=== PATIENT | female | born 1940 | race Caucasian/White ===

== ENCOUNTER 2020-05-28 18:12 | Inpatient (IN) | payer MEDICARE, BC ==
[2020-05-28] MEDS ORDERED: fentaNYL 50 MCG/ML SDV IVPUSH ONE (18:41)
--- NOTE | 2020-05-28 20:08 | EDM.PDOC ---
ED HPI GENERAL MEDICAL PROBLEM - General Chief Complaint: General Stated Complaint: Fell Time Seen by Provider: 05/28/20 18:21 Source of Information: Reports: Patient History Limitations: Reports: No Limitations - History of Present Illness INITIAL COMMENTS - FREE TEXT/NARRATIVE: Win is a pleasant 80 yo female who presented to the ED via private vehicle [place] by [place]. She states she had her walker with her and went to [employer] in her voucher when she tripped. She admits she his her nose but mostly fell onto her left shoulder. She states staff immediately helped her up. Admits she has a lot of left shoulder pain. Denies any loss of consciousness. No altered mental status. Elected to ride home and come to the local facility here to have her arm checked out. Patient's medication list reviewed and includes amlodipine 10mg daily, Lisinopril 40mg daily and gabapentin 100mg twice a day. 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 Had it "squeezed back together" - Past Surgical History HEENT Surgical History: Reports: Cataract Surgery Social & Family History - Tobacco Use Tobacco Use Status *Q: Former Tobacco User Used Tobacco, but Quit: Yes Month/Year Tobacco Last Used: 2010 - Caffeine Use Caffeine Use: Reports: Soda - Recreational Drug Use Recreational Drug Use: No ED ROS GENERAL - Review of Systems Review Of Systems: See Below Constitutional: Reports: No Symptoms HEENT: Reports: No Symptoms Respiratory: Reports: No Symptoms Cardiovascular: Reports: No Symptoms Endocrine: Reports: No Symptoms GI/Abdominal: Reports: No Symptoms Musculoskeletal: Reports: Shoulder Pain (Left), Arm Pain. Denies: Neck Pain, Hand Pain Skin: Reports: No Symptoms Neurological: Reports: No Symptoms Psychiatric: Reports: No Symptoms ED EXAM, GENERAL - Physical Exam Exam: See Below Exam Limited By: No Limitations General Appearance: Alert, WD/WN, No Apparent Distress Eye Exam: Bilateral Eye: EOMI, PERRL Ears: Normal External Exam, Hearing Loss Nose: Normal Inspection, Normal Mucosa, No Blood, Other (abrasion to bridge of nose) Throat/Mouth: Normal Inspection, Normal Lips, Normal Gums, Normal Voice, No Airway Compromise Head: Atraumatic, Normocephalic Neck: Normal Inspection, Supple, Non-Tender. No: Tender Lateral, Tender Midline Respiratory/Chest: No Respiratory Distress, Lungs Clear, Normal Breath Sounds, No Accessory Muscle Use Cardiovascular: Normal Peripheral Pulses, Regular Rate, Rhythm, No Murmur GI/Abdominal: Normal Bowel Sounds, Soft, Non-Tender, No Distention Back Exam: Normal Inspection. No: Vertebral Tenderness Extremities: Arm Pain, Limited Range of Motion (left shoulder, ROM deferred d/t humeral head fracture) Neurological: Alert, Oriented, CN II-XII Intact, Normal Cognition, No Motor/Sensory Deficits Psychiatric: Normal Affect, Normal Mood Skin Exam: Warm, Dry, Intact, Normal Color, No Rash Course - Vital Signs Last Recorded V/S: Last Vital Signs Temp 97.0 F 05/28/20 18:13 Pulse 101 H 05/28/20 18:13 Resp 20 05/28/20 18:13 BP 107/70 05/28/20 18:13 Pulse Ox 94 L 05/28/20 18:13 - Orders/Labs/Meds Orders: Active Orders 24 hr Category Date Time Status Shoulder Comp Lt [CR] Stat Exams 05/28/20 18:23 Taken Labs: Laboratory Tests 05/28/20 05/28/20 Range/Units 18:41 18:41 WBC 10.2 H (5.0-10.0) 10^3/uL RBC 4.16 (4.00-5.50) 10^6/uL Hgb 13.2 (12.0-16.0) g/dL Hct 39.6 (37.0-47.0) % MCV 95.2 H (82.0-94.0) fL MCH 31.7 (27.0-32.0) pg MCHC 33.3 (33.0-38.0) g/dL RDW Coeff of Kathrin 12.9 (11.0-15.0) % Plt Count 193 (150-400) 10^3/uL Neut % (Auto) 90.4 H (35-85) % Lymph % (Auto) 5.3 L (10-55) % [place]ison % (Auto) 4.1 (0-16) % Eos % (Auto) 0.1 (0-5) % Baso % (Auto) 0.1 (0-3) % Neut # (Auto) 9.24 H (1.80-7.00) 10^3/uL Lymph # (Auto) 0.54 L (1.00-4.80) 10^3/uL [place] # (Auto) 0.42 (0.00-0.80) 10^3/uL Eos # (Auto) 0.01 (0.00-0.45) 10^3/uL Baso # (Auto) 0.01 10^3/uL Sodium 140 (136-145) mEq/L Potassium 4.1 (3.5-5.0) mEq/L Chloride 104 (98-106) mEq/L Carbon Dioxide 29 (21-32) mmol/L BUN 23 H (7-18) mg/dL Creatinine 1.3 H D (0.6-1.0) mg/dL Est Cr Clr Drug Dosing 27.30 mL/min Estimated GFR (MDRD) 39 L (>=60) mL/min Glucose 187 H D (75-99) mg/dL Calcium 8.9 (8.4-10.1) mg/dL Total Bilirubin 0.4 (0.0-1.0) mg/dL AST 15 (15-37) U/L ALT 25 (12-78) U/L Alkaline Phosphatase 81 (46-116) U/L Total Protein 6.8 (6.4-8.2) g/dL Albumin 3.6 (3.4-5.0) g/dL Meds: Medications Discontinued Medications Generic Name Dose Route Start Last Admin Trade Name Freq PRN Reason Stop Dose Admin Fentanyl 25 mcg 05/28/20 18:41 05/28/20 19:20 Fentanyl 50 Mcg/Ml Sdv IVPUSH 05/28/20 18:42 25 mcg ONETIME ONE Administration Departure - Departure Time of Disposition: 20:00 Disposition: Admitted As Inpatient 66 Clinical Impression: Fracture of humeral head, right, closed Qualifiers: Encounter type: initial encounter Qualified Code(s): S42.291A - Other displaced fracture of upper end of right humerus, initial encounter for closed fracture - Discharge Information Sepsis Event Note (ED) - Evaluation Sepsis Screening Result: No Definite Risk - Focused Exam Vital Signs: Vital Signs Temp Pulse Resp BP Pulse Ox 05/28/20 18:13 97.0 F 101 H 20 107/70 94 L - Problem List & Annotations (1) Fracture of humeral head, right, closed SNOMED Code(s): 067898955 Code(s): S42.291A - OTH DISP FX OF UPPER END OF RIGHT HUMERUS, INIT FOR CLOS FX Status: Acute Current Visit: Yes Qualifiers: Encounter type: initial encounter Qualified Code(s): S42.291A - Other displaced fracture of upper end of right humerus, initial encounter for closed fracture - Problem List Review Problem List Initiated/Reviewed/Updated: Yes - My Orders Last 24 Hours: My Active Orders 05/28/20 18:23 Shoulder Comp Lt [CR] Stat - Assessment/Plan Admission H&P: Please use this note as an admission H&P Last 24 Hours: My Active Orders 05/28/20 18:23 Shoulder Comp Lt [CR] Stat Plan: Patient underwent images of the left shoulder which did confirm comminuted, displaced left humeral head fracture. Patient has full ROM of distal digits and sensation. Radial pulse intact. Consulted with [facility] and spoke with Dr. Daniels, orthopedic surgeon. Dr. Daniels did review the images and felt Win will need to undergo a reverse total shoulder replacement. He didn't feel anything needed to be done emergently and advised he will get her set up to be seen in his clinic on Saturday. Patient was placed in shoulder immobilizer with no neurovascular deficits noted. Discussed Win's condition with Augusto () and Sony (son). Patient has known difficulty with ambulation. Patient will need assistance with ADL's. Patient to be admitted to acute care for pain control as well. Family in agreement. Will plan for discharge for appointment with Dr. Daniels on Saturday or Saturday.
[2020-05-28] MEDS ORDERED: fentaNYL 50 MCG/ML SDV IVPUSH PRN (20:23)
[2020-05-28] MEDS ORDERED: Acetaminophen 325 MG Tab PO PRN (20:23)
[2020-05-28] MEDS ORDERED: Sodium Chloride 0.9% 10 ML Syringe FLUSH PRN (20:23)
[2020-05-28] MEDS ORDERED: Docusate Sodium 100 MG Cap PO PRN (20:23)
[2020-05-28] MEDS ORDERED: Ondansetron 4 MG/2 ML SDV IV PRN (20:23)
[2020-05-28] MEDS: HYDROmorphone 1 MG/ML Syringe IVPUSH PRN (21:10)
[2020-05-28] MEDS: Enoxaparin 30 MG/0.3 ML Syringe SUBCUT SCH (21:11)
[2020-05-28] MEDS: Acetaminophen/HYDROcodone 325-5 MG Tab PO PRN (21:11)
[2020-05-29] MEDS: Acetaminophen/HYDROcodone 325-5 MG Tab PO PRN ×2 (04:45→13:42)
[2020-05-29] MEDS: Gabapentin 100 MG Cap PO SCH (07:55)
[2020-05-29] MEDS: amLODIPine 10 MG Tab PO SCH (07:56)
[2020-05-29] MEDS: Lisinopril 20 MG Tab PO SCH (07:57)
[2020-05-29] MEDS: HYDROmorphone 1 MG/ML Syringe IVPUSH PRN (07:59)
--- NOTE | 2020-05-29 10:41 | PCM.PN ---
- General Info Date of Service: 05/29/20 Admission Dx/Problem (Free Text): Humerus Fracture Subjective Update: Patient resting comfortably. Immobilizer intact. Admits that still has pain with any movement of her arm. Is receiving Dilaudid which does help control the pain. Appetite is good. Has not been ambulating much except to bathroom. Patient does question ability to care for self even after surgery. Vital signs are stable. Functional Status: Reports: Pain Controlled, Tolerating Diet. Denies: Ambulating - Review of Systems General: Reports: Weakness HEENT: Reports: No Symptoms Pulmonary: Denies: Shortness of Breath, Cough Cardiovascular: Denies: Chest Pain, Edema, Lightheadedness Gastrointestinal: Denies: Abdominal Pain, Nausea, Vomiting Genitourinary: Reports: No Symptoms Musculoskeletal: Reports: Arm Pain Skin: Reports: Bruising Neurological: Reports: No Symptoms - Patient Data Vitals - Most Recent: Last Vital Signs Temp 99.1 F 05/29/20 08:00 Pulse 81 05/29/20 08:00 Resp 20 05/29/20 08:00 BP 129/66 05/29/20 08:00 Pulse Ox 94 L 05/29/20 08:00 Weight - Most Recent: 189 lb 3.2 oz Lab Results Last 24 Hours: Laboratory Results - last 24 hr 05/28/20 05/28/20 Range/Units 18:41 18:41 WBC 10.2 H (5.0-10.0) 10^3/uL RBC 4.16 (4.00-5.50) 10^6/uL Hgb 13.2 (12.0-16.0) g/dL Hct 39.6 (37.0-47.0) % MCV 95.2 H (82.0-94.0) fL MCH 31.7 (27.0-32.0) pg MCHC 33.3 (33.0-38.0) g/dL RDW Coeff of Kathrin 12.9 (11.0-15.0) % Plt Count 193 (150-400) 10^3/uL Neut % (Auto) 90.4 H (35-85) % Lymph % (Auto) 5.3 L (10-55) % Isabella % (Auto) 4.1 (0-16) % Eos % (Auto) 0.1 (0-5) % Baso % (Auto) 0.1 (0-3) % Neut # (Auto) 9.24 H (1.80-7.00) 10^3/uL Lymph # (Auto) 0.54 L (1.00-4.80) 10^3/uL Isabella # (Auto) 0.42 (0.00-0.80) 10^3/uL Eos # (Auto) 0.01 (0.00-0.45) 10^3/uL Baso # (Auto) 0.01 10^3/uL Sodium 140 (136-145) mEq/L Potassium 4.1 (3.5-5.0) mEq/L Chloride 104 (98-106) mEq/L Carbon Dioxide 29 (21-32) mmol/L BUN 23 H (7-18) mg/dL Creatinine 1.3 H D (0.6-1.0) mg/dL Est Cr Clr Drug Dosing 27.30 mL/min Estimated GFR (MDRD) 39 L (>=60) mL/min Glucose 187 H D (75-99) mg/dL Calcium 8.9 (8.4-10.1) mg/dL Total Bilirubin 0.4 (0.0-1.0) mg/dL AST 15 (15-37) U/L ALT 25 (12-78) U/L Alkaline Phosphatase 81 (46-116) U/L Total Protein 6.8 (6.4-8.2) g/dL Albumin 3.6 (3.4-5.0) g/dL Med Orders - Current: Current Medications Acetaminophen (Acetaminophen 325 Mg Tab) 650 mg PO Q4H PRN PRN Reason: Pain (Mild 1-3)/fever Hydrocodone Bitart/Acetaminophen (Acetaminophen/Hydrocodone 325-5 Mg Tab) 1 tab PO Q4H PRN PRN Reason: Pain (moderate 4-6) Last Admin: 05/29/20 04:45 Dose: 1 tab Documented by: Amlodipine Besylate (Amlodipine 10 Mg Tab) 10 mg PO DAILY [facility] Last Admin: 05/29/20 07:56 Dose: 10 mg Documented by: Docusate Sodium (Docusate Sodium 100 Mg Cap) 100 mg PO BID PRN PRN Reason: Constipation Enoxaparin Sodium (Enoxaparin 30 Mg/0.3 Ml Syringe) 30 mg SUBCUT Q24H [facility] Last Admin: 05/28/20 21:11 Dose: 30 mg Documented by: Gabapentin (Gabapentin 100 Mg Cap) 100 mg PO DAILY [facility] Last Admin: 05/29/20 07:55 Dose: 100 mg Documented by: Hydromorphone HCl (Hydromorphone 1 Mg/Ml Syringe) 0.5 - 1 mg IVPUSH Q4H PRN PRN Reason: Pain Last Admin: 05/29/20 07:59 Dose: 1 mg Documented by: Hydromorphone HCl (Hydromorphone 1 Mg/Ml Syringe) 1 mg IVPUSH Q12H [facility] Lisinopril (Lisinopril 20 Mg Tab) 40 mg PO DAILY [facility] Last Admin: 05/29/20 07:57 Dose: 40 mg Documented by: Non-Formulary Medication (Naproxen Sodium [Aleve]) 440 mg PO DAILY PRN PRN Reason: Pain Ondansetron HCl (Ondansetron 4 Mg/2 Ml Sdv) 4 mg IV Q4H PRN PRN Reason: Nausea/Vomiting Sodium Chloride (Sodium Chloride 0.9% 10 Ml Syringe) 10 ml FLUSH ASDIRECTED PRN PRN Reason: Keep Vein Open Discontinued Medications Fentanyl (Fentanyl 50 Mcg/Ml Sdv) 25 mcg IVPUSH ONETIME ONE Stop: 05/28/20 18:42 Last Admin: 05/28/20 19:20 Dose: 25 mcg Documented by: Fentanyl (Fentanyl 50 Mcg/Ml Sdv) 25 mcg IVPUSH Q4H PRN PRN Reason: Pain - Exam General: Alert, Oriented HEENT: Mucous Membr. Moist/[place] Neck: Supple Lungs: Clear to Auscultation, Normal Respiratory Effort Cardiovascular: Regular Rate, Regular Rhythm GI/Abdominal Exam: Normal Bowel Sounds, Soft, Non-Tender Extremities: Pedal Edema (trace), Limited Range of Motion (Has swelling and early bruising of left upper arm. Immobilizer intact. Tender to palpation.) Skin: Ecchymosis (has mild ) Neurological: No New Focal Deficit - Patient Data Lab Results Last 24 hrs: Laboratory Results - last 24 hr 05/28/20 05/28/20 Range/Units 18:41 18:41 WBC 10.2 H (5.0-10.0) 10^3/uL RBC 4.16 (4.00-5.50) 10^6/uL Hgb 13.2 (12.0-16.0) g/dL Hct 39.6 (37.0-47.0) % MCV 95.2 H (82.0-94.0) fL MCH 31.7 (27.0-32.0) pg MCHC 33.3 (33.0-38.0) g/dL RDW Coeff of Kathrin 12.9 (11.0-15.0) % Plt Count 193 (150-400) 10^3/uL Neut % (Auto) 90.4 H (35-85) % Lymph % (Auto) 5.3 L (10-55) % Isabella % (Auto) 4.1 (0-16) % Eos % (Auto) 0.1 (0-5) % Baso % (Auto) 0.1 (0-3) % Neut # (Auto) 9.24 H (1.80-7.00) 10^3/uL Lymph # (Auto) 0.54 L (1.00-4.80) 10^3/uL Isabella # (Auto) 0.42 (0.00-0.80) 10^3/uL Eos # (Auto) 0.01 (0.00-0.45) 10^3/uL Baso # (Auto) 0.01 10^3/uL Sodium 140 (136-145) mEq/L Potassium 4.1 (3.5-5.0) mEq/L Chloride 104 (98-106) mEq/L Carbon Dioxide 29 (21-32) mmol/L BUN 23 H (7-18) mg/dL Creatinine 1.3 H D (0.6-1.0) mg/dL Est Cr Clr Drug Dosing 27.30 mL/min Estimated GFR (MDRD) 39 L (>=60) mL/min Glucose 187 H D (75-99) mg/dL Calcium 8.9 (8.4-10.1) mg/dL Total Bilirubin 0.4 (0.0-1.0) mg/dL AST 15 (15-37) U/L ALT 25 (12-78) U/L Alkaline Phosphatase 81 (46-116) U/L Total Protein 6.8 (6.4-8.2) g/dL Albumin 3.6 (3.4-5.0) g/dL Result Diagrams: 05/28/20 18:41 05/28/20 18:41 Sepsis Event Note - Evaluation Sepsis Screening Result: No Definite Risk - Focused Exam Vital Signs: Vital Signs Temp Pulse Resp BP BP Pulse Ox 05/29/20 08:00 99.1 F 81 20 129/66 94 L 05/29/20 07:57 129/66 05/29/20 07:56 126/66 05/29/20 04:00 97.4 F 85 18 128/79 95 05/29/20 00:00 97.4 F 82 18 108/62 94 L - Problem List & Annotations (1) Fracture of humeral head, right, closed SNOMED Code(s): 969077845 Code(s): S42.291A - OTH DISP FX OF UPPER END OF RIGHT HUMERUS, INIT FOR CLOS FX Status: Acute Current Visit: Yes Qualifiers: Encounter type: initial encounter Qualified Code(s): S42.291A - Other displaced fracture of upper end of right humerus, initial encounter for closed fracture - Problem List Review Problem List Initiated/Reviewed/Updated: Yes - My Orders Last 24 Hours: My Active Orders 05/29/20 20:00 HYDROmorphone [Dilaudid] 1 mg IVPUSH Q12H - Assessment Assessment:: Left Humerus Fracture - Plan Plan:: Will switch to scheduled Dilaudid for more consistent pain control. Social ser vice consult on Saturday for questionable swing bed after surgery. Continue immobilizer. Orthopedic will again be contacted on Saturday to arrange for surgical intervention of fracture.
[2020-05-29] MEDS: HYDROmorphone 1 MG/ML Syringe IVPUSH SCH (19:34)
[2020-05-29] MEDS: Enoxaparin 30 MG/0.3 ML Syringe SUBCUT SCH (20:05)
[2020-05-30] MEDS: HYDROmorphone 1 MG/ML Syringe IVPUSH SCH ×2 (07:42→19:36)
[2020-05-30] MEDS: amLODIPine 10 MG Tab PO SCH (07:42)
[2020-05-30] MEDS: Gabapentin 100 MG Cap PO SCH (07:42)
[2020-05-30] MEDS: Lisinopril 20 MG Tab PO SCH (07:42)
[2020-05-30 07:57] LABS: CHLORIDE,CL 103 mEq/L (98-106); SODIUM,NA 139 mEq/L (136-145)
[2020-05-30] MEDS: cefTRIAXone 1 GM Vial IVPUSH SCH (09:13)
[2020-05-30] MEDS: Acetaminophen/HYDROcodone 325-5 MG Tab PO PRN (09:31)
[2020-05-30] MEDS ORDERED: Naproxen 500 MG Tab PO PRN (16:34)
[2020-05-30] MEDS: Enoxaparin 30 MG/0.3 ML Syringe SUBCUT SCH (21:00)
[2020-05-31] MEDS: Acetaminophen/HYDROcodone 325-5 MG Tab PO PRN ×3 (04:19→16:25)
[2020-05-31] MEDS: Lisinopril 20 MG Tab PO SCH (08:00)
[2020-05-31] MEDS: HYDROmorphone 1 MG/ML Syringe IVPUSH SCH ×2 (08:00→19:55)
[2020-05-31] MEDS: Gabapentin 100 MG Cap PO SCH (08:01)
[2020-05-31] MEDS: amLODIPine 10 MG Tab PO SCH (08:01)
--- NOTE | 2020-05-31 09:25 | PCM.PN ---
- General Info Date of Service: 05/30/20 Admission Dx/Problem (Free Text): Humerus Fracture Subjective Update: Patient resting comfortably. Immobilizer intact. Admits that still has pain with any movement of her arm. Is receiving Dilaudid which does help control the pain. Appetite is good. Has not been ambulating much except to bathroom. Patient does question ability to care for self even after surgery. Vital signs are stable. 05/30/2020 Win is doing well this morning. States she continues to have an ache in her arm but feels the pain medication has been helping. Immobilizer is still in place. Questioning when she will have surgery. Appetite is okay, states she hasn't been getting up very much as it does cause increased pain and unsteady on her feet. Unable to use walker. Denies any UTI symptoms but urinalysis did come back positive. States she hasn't had a bowel movement. Functional Status: Denies: Pain Controlled - Review of Systems General: Reports: Weakness HEENT: Reports: No Symptoms Pulmonary: Reports: No Symptoms Cardiovascular: Reports: No Symptoms Gastrointestinal: Reports: Constipation, Decreased Appetite, Flatus, Nausea. Denies: Vomiting Genitourinary: Reports: No Symptoms Musculoskeletal: Reports: Shoulder Pain Skin: Reports: No Symptoms Neurological: Reports: No Symptoms Psychiatric: Reports: No Symptoms - Patient Data Vitals - Most Recent: Last Vital Signs Temp 98 F 05/31/20 04:00 Pulse 95 05/31/20 04:00 Resp 18 05/31/20 04:00 BP 128/72 05/31/20 08:01 Pulse Ox 94 L 05/31/20 04:00 Weight - Most Recent: 189 lb 3.2 oz Lab Results Last 24 Hours: Laboratory Results - last 24 hr 05/30/20 Range/Units 10:07 NT-Pro-B Natriuret Pep 66 (0-1000) pg/mL Med Orders - Current: Current Medications Acetaminophen (Acetaminophen 325 Mg Tab) 650 mg PO Q4H PRN PRN Reason: Pain (Mild 1-3)/fever Last Admin: 05/30/20 08:44 Dose: 650 mg Documented by: Hydrocodone Bitart/Acetaminophen (Acetaminophen/Hydrocodone 325-5 Mg Tab) 1 tab PO Q4H PRN PRN Reason: Pain (moderate 4-6) Last Admin: 05/31/20 04:19 Dose: 1 tab Documented by: Amlodipine Besylate (Amlodipine 10 Mg Tab) 10 mg PO DAILY [facility] Last Admin: 05/31/20 08:01 Dose: 10 mg Documented by: Ceftriaxone Sodium (Ceftriaxone 1 Gm Vial) 1 gm IVPUSH Q24H [facility] Last Admin: 05/30/20 09:13 Dose: 1 gm Documented by: Docusate Sodium (Docusate Sodium 100 Mg Cap) 100 mg PO BID PRN PRN Reason: Constipation Last Admin: 05/30/20 08:45 Dose: 100 mg Documented by: Enoxaparin Sodium (Enoxaparin 30 Mg/0.3 Ml Syringe) 30 mg SUBCUT Q24H [facility] Last Admin: 05/30/20 21:00 Dose: 30 mg Documented by: Gabapentin (Gabapentin 100 Mg Cap) 100 mg PO DAILY [facility] Last Admin: 05/31/20 08:01 Dose: 100 mg Documented by: Hydromorphone HCl (Hydromorphone 1 Mg/Ml Syringe) 0.5 - 1 mg IVPUSH Q4H PRN PRN Reason: Pain Last Admin: 05/29/20 07:59 Dose: 1 mg Documented by: Hydromorphone HCl (Hydromorphone 1 Mg/Ml Syringe) 1 mg IVPUSH Q12H [facility] Last Admin: 05/31/20 08:00 Dose: 1 mg Documented by: Lisinopril (Lisinopril 20 Mg Tab) 40 mg PO DAILY [facility] Last Admin: 05/31/20 08:00 Dose: 40 mg Documented by: Naproxen (Naproxen 500 Mg Tab) 500 mg PO DAILY PRN PRN Reason: Pain Ondansetron HCl (Ondansetron 4 Mg/2 Ml Sdv) 4 mg IV Q4H PRN PRN Reason: Nausea/Vomiting Sodium Chloride (Sodium Chloride 0.9% 10 Ml Syringe) 10 ml FLUSH ASDIRECTED PRN PRN Reason: Keep Vein Open Discontinued Medications Fentanyl (Fentanyl 50 Mcg/Ml Sdv) 25 mcg IVPUSH ONETIME ONE Stop: 05/28/20 18:42 Last Admin: 05/28/20 19:20 Dose: 25 mcg Documented by: Fentanyl (Fentanyl 50 Mcg/Ml Sdv) 25 mcg IVPUSH Q4H PRN PRN Reason: Pain - Exam General: Alert, Oriented, Cooperative, No Acute Distress Lungs: Clear to Auscultation, Normal Respiratory Effort Cardiovascular: Regular Rate, Regular Rhythm, No Murmurs GI/Abdominal Exam: Normal Bowel Sounds, Soft, Non-Tender, No Organomegaly, No Distention Extremities: Normal Inspection, Pedal Edema (trace bilateral) Peripheral Pulses: 2+: Radial (L), Dorsalis Pedis (L), Dorsalis Pedis (R) Skin: Warm, Dry, Intact Psy/Mental Status: Alert, Normal Affect, Normal Mood - Patient Data Lab Results Last 24 hrs: Laboratory Results - last 24 hr 05/30/20 Range/Units 10:07 NT-Pro-B Natriuret Pep 66 (0-1000) pg/mL Result Diagrams: 05/30/20 05:11 05/30/20 05:11 Sepsis Event Note - Evaluation Sepsis Screening Result: No Definite Risk - Focused Exam Vital Signs: Vital Signs Temp Pulse Resp BP BP Pulse Ox 05/31/20 08:01 128/72 05/31/20 08:00 128/72 05/31/20 04:00 98 F 95 18 122/58 L 94 L 05/31/20 00:00 98 F 82 18 142/67 H 94 L - Problem List & Annotations (1) Fracture of humeral head, right, closed SNOMED Code(s): 193264499 Code(s): S42.291A - OTH DISP FX OF UPPER END OF RIGHT HUMERUS, INIT FOR CLOS FX Status: Acute Current Visit: Yes Qualifiers: Encounter type: initial encounter Qualified Code(s): S42.291A - Other displaced fracture of upper end of right humerus, initial encounter for closed fracture (2) UTI (urinary tract infection) SNOMED Code(s): 52591451 Code(s): N39.0 - URINARY TRACT INFECTION, SITE NOT SPECIFIED Status: Acute Current Visit: Yes Qualifiers: Urinary tract infection type: acute cystitis Hematuria presence: without hematuria Qualified Code(s): N30.00 - Acute cystitis without hematuria - Problem List Review Problem List Initiated/Reviewed/Updated: Yes - My Orders Last 24 Hours: My Active Orders 05/30/20 09:00 cefTRIAXone [Rocephin] 1 gm IVPUSH Q24H 05/30/20 09:19 Consult to Physical Therapy [PT Evaluation and Treatment] [CONS] Routine 05/30/20 09:50 Resuscitation Status Routine 05/30/20 16:34 Naproxen [Naprosyn] 500 mg PO DAILY PRN - Assessment Assessment:: Left Humerus Fracture - Plan Plan:: Will switch to scheduled Dilaudid for more consistent pain control. Social service consult on Saturday for questionable swing bed after surgery. Continue immobilizer. Orthopedic will again be contacted on Saturday to arrange for surgical intervention of fracture. 05/30/2020 Patient has been started on IV Rocephine for UTI. Culture is pending. Will continue with current pain medication and discussed may use [place] every 4 hours as needed for pain. Will continue to get scheduled IV Dilaudid. Consulted with [facility] and Dr. Daniels's office. Surgery will likely be Saturday or . Will call tomorrow morning for follow up on surgery and transfer.
--- NOTE | 2020-05-31 09:45 | PCM.PN ---
- General Info Date of Service: 05/31/20 Admission Dx/Problem (Free Text): Humerus Fracture Subjective Update: Patient resting comfortably. Immobilizer intact. Admits that still has pain with any movement of her arm. Is receiving Dilaudid which does help control the pain. Appetite is good. Has not been ambulating much except to bathroom. Patient does question ability to care for self even after surgery. Vital signs are stable. 05/30/2020 Win is doing well this morning. States she continues to have an ache in her arm but feels the pain medication has been helping. Immobilizer is still in place. Questioning when she will have surgery. Appetite is okay, states she hasn't been getting up very much as it does cause increased pain and unsteady on her feet. Unable to use walker. Denies any UTI symptoms but urinalysis did come back positive. States she hasn't had a bowel movement. 05/31/2020 Win is in good spirits this morning. States the pain is tolerable and the pain medications are lasting about 4 hours. States after that it will get a strong ache in her arm. Physical therapy was in to see her this morning. Physical therapy is concerned as she is very hesitant to walk with only a cane, as she usually uses a walker. PT states she needs to be more confident. Concerned Win will just sit in the chair all day where she is comfortable. She denies any bowel movements but states she is passing gas. Appetite is okay. Functional Status: Reports: Pain Controlled, Tolerating Diet, Incentive Spirometry - Review of Systems General: Reports: Weakness HEENT: Reports: No Symptoms Pulmonary: Reports: No Symptoms Cardiovascular: Reports: No Symptoms Gastrointestinal: Reports: No Symptoms Genitourinary: Reports: No Symptoms Musculoskeletal: Reports: Shoulder Pain Skin: Reports: No Symptoms Neurological: Reports: No Symptoms - Patient Data Vitals - Most Recent: Last Vital Signs Temp 98.7 F 05/31/20 08:00 Pulse 92 05/31/20 08:00 Resp 18 05/31/20 08:00 BP 128/72 05/31/20 08:01 Pulse Ox 93 L 05/31/20 08:00 Weight - Most Recent: 189 lb 3.2 oz Lab Results Last 24 Hours: Laboratory Results - last 24 hr 05/30/20 Range/Units 10:07 NT-Pro-B Natriuret Pep 66 (0-1000) pg/mL [place] Results Last 24 Hours: Microbiology 05/30/20 07:43 Urine Culture - Preliminary Urine, Voided Gram Negative Rods Med Orders - Current: Current Medications Acetaminophen (Acetaminophen 325 Mg Tab) 650 mg PO Q4H PRN PRN Reason: Pain (Mild 1-3)/fever Last Admin: 05/30/20 08:44 Dose: 650 mg Documented by: Hydrocodone Bitart/Acetaminophen (Acetaminophen/Hydrocodone 325-5 Mg Tab) 1 tab PO Q4H PRN PRN Reason: Pain (moderate 4-6) Last Admin: 05/31/20 04:19 Dose: 1 tab Documented by: Amlodipine Besylate (Amlodipine 10 Mg Tab) 10 mg PO DAILY [facility] Last Admin: 05/31/20 08:01 Dose: 10 mg Documented by: Ceftriaxone Sodium (Ceftriaxone 1 Gm Vial) 1 gm IVPUSH Q24H [facility] Last Admin: 05/30/20 09:13 Dose: 1 gm Documented by: Docusate Sodium (Docusate Sodium 100 Mg Cap) 100 mg PO BID PRN PRN Reason: Constipation Last Admin: 05/30/20 08:45 Dose: 100 mg Documented by: Enoxaparin Sodium (Enoxaparin 30 Mg/0.3 Ml Syringe) 30 mg SUBCUT Q24H [facility] Last Admin: 05/30/20 21:00 Dose: 30 mg Documented by: Gabapentin (Gabapentin 100 Mg Cap) 100 mg PO DAILY [facility] Last Admin: 05/31/20 08:01 Dose: 100 mg Documented by: Hydromorphone HCl (Hydromorphone 1 Mg/Ml Syringe) 0.5 - 1 mg IVPUSH Q4H PRN PRN Reason: Pain Last Admin: 05/29/20 07:59 Dose: 1 mg Documented by: Hydromorphone HCl (Hydromorphone 1 Mg/Ml Syringe) 1 mg IVPUSH Q12H [facility] Last Admin: 05/31/20 08:00 Dose: 1 mg Documented by: Lisinopril (Lisinopril 20 Mg Tab) 40 mg PO DAILY [facility] Last Admin: 05/31/20 08:00 Dose: 40 mg Documented by: Naproxen (Naproxen 500 Mg Tab) 500 mg PO DAILY PRN PRN Reason: Pain Ondansetron HCl (Ondansetron 4 Mg/2 Ml Sdv) 4 mg IV Q4H PRN PRN Reason: Nausea/Vomiting Sodium Chloride (Sodium Chloride 0.9% 10 Ml Syringe) 10 ml FLUSH ASDIRECTED PRN PRN Reason: Keep Vein Open Discontinued Medications Fentanyl (Fentanyl 50 Mcg/Ml Sdv) 25 mcg IVPUSH ONETIME ONE Stop: 05/28/20 18:42 Last Admin: 05/28/20 19:20 Dose: 25 mcg Documented by: Fentanyl (Fentanyl 50 Mcg/Ml Sdv) 25 mcg IVPUSH Q4H PRN PRN Reason: Pain - Exam General: Alert, Oriented, Cooperative, No Acute Distress Lungs: Clear to Auscultation, Normal Respiratory Effort Cardiovascular: Regular Rate, Regular Rhythm, No Murmurs GI/Abdominal Exam: Normal Bowel Sounds, Soft, Non-Tender, No Distention Extremities: Normal Inspection, Normal Range of Motion, No Pedal Edema, Pedal Edema (trace) Peripheral Pulses: 2+: Radial (L), Dorsalis Pedis (L), Dorsalis Pedis (R) Skin: Warm, Dry, Intact Neurological: Sensation Intact Psy/Mental Status: Alert, Normal Affect, Normal Mood - Patient Data Lab Results Last 24 hrs: Laboratory Results - last 24 hr 05/30/20 Range/Units 10:07 NT-Pro-B Natriuret Pep 66 (0-1000) pg/mL Result Diagrams: 05/30/20 05:11 05/30/20 05:11 [place] Results Last 24 hrs: Microbiology 05/30/20 07:43 Urine Culture - Preliminary Urine, Voided Gram Negative Rods Sepsis Event Note - Evaluation Sepsis Screening Result: No Definite Risk - Focused Exam Vital Signs: Vital Signs Temp Pulse Resp BP BP Pulse Ox 05/31/20 08:01 128/72 05/31/20 08:00 98.7 F 92 18 128/72 128/72 93 L 05/31/20 04:00 98 F 95 18 122/58 L 94 L 05/31/20 00:00 98 F 82 18 142/67 H 94 L - Problem List & Annotations (1) Fracture of humeral head, right, closed SNOMED Code(s): 812661760 Code(s): S42.291A - OTH DISP FX OF UPPER END OF RIGHT HUMERUS, INIT FOR CLOS FX Status: Acute Current Visit: Yes Qualifiers: Encounter type: initial encounter Qualified Code(s): S42.291A - Other displaced fracture of upper end of right humerus, initial encounter for closed fracture (2) UTI (urinary tract infection) SNOMED Code(s): 44521107 Code(s): N39.0 - URINARY TRACT INFECTION, SITE NOT SPECIFIED Status: Acute Current Visit: Yes Qualifiers: Urinary tract infection type: acute cystitis Hematuria presence: without hematuria Qualified Code(s): N30.00 - Acute cystitis without hematuria - Problem List Review Problem List Initiated/Reviewed/Updated: Yes - My Orders Last 24 Hours: My Active Orders 05/30/20 09:00 cefTRIAXone [Rocephin] 1 gm IVPUSH Q24H 05/30/20 09:19 Consult to Physical Therapy [PT Evaluation and Treatment] [CONS] Routine 05/30/20 09:50 Resuscitation Status Routine 05/30/20 16:34 Naproxen [Naprosyn] 500 mg PO DAILY PRN - Assessment Assessment:: Left Humerus Fracture - Plan Plan:: Will switch to scheduled Dilaudid for more consistent pain control. Social service consult on Saturday for questionable swing bed after surgery. Continue immobilizer. Orthopedic will again be contacted on Saturday to arrange for surgical intervention of fracture. 05/30/2020 Patient has been started on IV Rocephin for UTI. Culture is pending. Will contin ue with current pain medication and discussed may use [place] every 4 hours as needed for pain. Will continue to get scheduled IV Dilaudid. Consulted with [facility] and Dr. Daniels's office. Surgery will likely be Saturday or . Will call tomorrow morning for follow up on surgery and transfer. 05/31/[address] Daniels's office this morning. Surgery will likely be and they will call us back for confirmation. Plan will be to discharge tomorrow and patient will likely go by private vehicle. Self pay rates for BLS transfer were discussed as Win initially felt she wouldn't be able to go by private vehicle. Discussed with Win ambulation and how important it is for her. Will continue to give stool softener. Urine culture did preliminary grow out gram negative rods.
[2020-05-31] MEDS: cefTRIAXone 1 GM Vial IVPUSH SCH (09:47)
[2020-05-31] MEDS: Enoxaparin 30 MG/0.3 ML Syringe SUBCUT SCH (20:03)
[2020-06-01] MEDS: Lisinopril 20 MG Tab PO SCH (07:36)
[2020-06-01] MEDS: amLODIPine 10 MG Tab PO SCH (07:36)
[2020-06-01] MEDS: Gabapentin 100 MG Cap PO SCH (07:36)
[2020-06-01] MEDS: HYDROmorphone 1 MG/ML Syringe IVPUSH SCH (07:37)
[2020-06-01] MEDS: cefTRIAXone 1 GM Vial IVPUSH SCH (08:00)
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
[2020-06-01] MEDS: Acetaminophen/HYDROcodone 325-5 MG Tab PO PRN (08:44)
== END 2020-06-01 09:00 | DRG 563 ==
LOC: CC.ED 18:12 → UNDOADMIN 19:24 → CC.MS 19:24
PROVIDERS: ADMIT Physician Assistant Medical; ATTEND Family Medicine
DX: S42.202A Unspecified fracture of upper end of left humerus, initial encounter for closed fracture (principal); S42.292A Other displaced fracture of upper end of left humerus, initial encounter for closed fracture; N30.00 Acute cystitis without hematuria; H54.7 Unspecified visual loss; I10 Essential (primary) hypertension; Z87.891 Personal history of nicotine dependence; W01.0XXA Fall on same level from slipping, tripping and stumbling without subsequent striking against object, initial encounter; Y92.59 Other trade areas as the place of occurrence of the external cause
CPT/HCPCS: 36415; 73030; 80053; 85025; 96374; 99284; J3010; 71046; 80048; 81001; 83880; 86140; 87086; 87088; 87186; 97161-GP; 97530-GP; A9270-GY; J0696; J1170; J1650

== ENCOUNTER 2020-06-03 12:38 | Inpatient (IN) | payer MEDICARE, BC ==
[2020-06-03] MEDS ORDERED: Magnesium Hydroxide 400 MG/5 ML Susp 30 ML Cup PO PRN (16:11)
[2020-06-03] MEDS ORDERED: traMADol 50 MG Tab PO PRN (16:12)
[2020-06-03] MEDS ORDERED: Acetaminophen 325 MG Tab PO PRN (16:14)
[2020-06-03] MEDS: HYDROmorphone 2 MG Tab PO PRN (17:43)
[2020-06-03] MEDS: Enoxaparin 40 MG/0.4 ML Syringe SUBCUT SCH (19:54)
[2020-06-03] MEDS: Gabapentin 100 MG Cap PO SCH (19:54)
--- NOTE | 2020-06-03 21:32 | HP ---
CHIEF COMPLAINT: Swing bed admission. HISTORY: The patient is status post a fall with left humeral fracture. She is status post repair and she comes back to our facility for swing bed and rehab. Her postop course reportedly has been uneventful. Her and son are present with her and they deny that she has had any concerns. She is having pain which is controlled with her pain medication, pain pills are working for her. She is to be in an immobilizer for now and having no activity with her left arm. She can move it for bathing. PAST MEDICAL HISTORY: Includes a history of dementia, GERD, and hypertension. ALLERGIES: NONE. CURRENT MEDICATIONS: See chart. SOCIAL HISTORY: The patient is , lives with her . She is a nonsmoker, nondrinker. Does suffer from memory impairment and this has been addressed by family in the past. REVIEW OF SYSTEMS: As per above. PHYSICAL EXAMINATION: VITAL SIGNS: Reviewed and normal. GENERAL: The patient is in an immobilizer. HEENT: Grossly benign. NECK: Supple. No adenopathy is felt. No resting JVD. LUNGS: Sounds are diminished in the bases, but otherwise clear without adventitial sounds. CARDIAC: Tones are regular. ABDOMEN: Appears nontender. EXTREMITIES: Lower extremities with no edema. Pulses are palpable. Left upper arm has bruising all the way down through to the wrist consistent with her surgical intervention. Pulses are brisk in the wrist. ASSESSMENT: 1. SWING BED PLACEMENT. 2. STATUS POST OPEN REDUCTION AND INTERNAL FIXATION, LEFT HUMERAL FRACTURE. 3. HYPERTENSION, CONTROLLED. 4. MEMORY IMPAIRMENT. PLAN: Routine orders. Please see chart. PT will be consulted for cares. KAMRYN/SERGIO /[id number]
[2020-06-04] MEDS: HYDROmorphone 2 MG Tab PO PRN ×3 (00:50→17:34)
[2020-06-04] MEDS: Gabapentin 100 MG Cap PO SCH ×2 (07:59→19:46)
[2020-06-04] MEDS: Famotidine 20 MG Tab PO SCH (07:59)
[2020-06-04] MEDS: Lisinopril 20 MG Tab PO SCH (07:59)
[2020-06-04] MEDS: amLODIPine 10 MG Tab PO SCH (07:59)
[2020-06-04] MEDS ORDERED: Aspirin 325 MG Tab.EC PO SCH (08:00)
[2020-06-04] MEDS ORDERED: Polyethylene Glycol 3350 Powder 17 GM Packet PO SCH (08:00)
[2020-06-04] MEDS ORDERED: Polyethylene Glycol 3350 Powder 17 GM Packet PO PRN (10:11)
[2020-06-04] MEDS: Docusate Sodium 100 MG Cap PO PRN (10:32)
[2020-06-04] MEDS: Enoxaparin 40 MG/0.4 ML Syringe SUBCUT SCH (19:45)
[2020-06-05] MEDS: HYDROmorphone 2 MG Tab PO PRN ×4 (03:31→19:50)
[2020-06-05] MEDS: Gabapentin 100 MG Cap PO SCH ×2 (07:29→19:44)
[2020-06-05] MEDS: Famotidine 20 MG Tab PO SCH (07:29)
[2020-06-05] MEDS: Docusate Sodium 100 MG Cap PO PRN (07:29)
[2020-06-05] MEDS: Lisinopril 20 MG Tab PO SCH (07:30)
[2020-06-05] MEDS: amLODIPine 10 MG Tab PO SCH (07:30)
[2020-06-05] MEDS: Enoxaparin 40 MG/0.4 ML Syringe SUBCUT SCH (19:44)
[2020-06-06] MEDS: Gabapentin 100 MG Cap PO SCH ×2 (07:50→19:53)
[2020-06-06] MEDS: amLODIPine 10 MG Tab PO SCH (07:50)
[2020-06-06] MEDS: Lisinopril 20 MG Tab PO SCH (07:50)
[2020-06-06] MEDS: Famotidine 20 MG Tab PO SCH (07:51)
[2020-06-06] MEDS: HYDROmorphone 2 MG Tab PO PRN ×3 (07:51→20:07)
--- NOTE | 2020-06-06 11:38 | PCM.SN.2 ---
- Free Text/Narrative Note: Stopped in to see how Win is doing post operatively. Win is in great spirits this morning and feels as if the pain is improving. States she had a great weekend and has no complaints presently. Incision evaluated and looks excellent, healing well.
[2020-06-06] MEDS: Enoxaparin 40 MG/0.4 ML Syringe SUBCUT SCH (19:53)
[2020-06-07] MEDS: HYDROmorphone 2 MG Tab PO PRN ×3 (08:28→19:59)
[2020-06-07] MEDS: Gabapentin 100 MG Cap PO SCH ×2 (08:28→19:59)
[2020-06-07] MEDS: amLODIPine 10 MG Tab PO SCH (08:29)
[2020-06-07] MEDS: Lisinopril 20 MG Tab PO SCH (08:29)
[2020-06-07] MEDS: Famotidine 20 MG Tab PO SCH (08:30)
[2020-06-07] MEDS: Enoxaparin 40 MG/0.4 ML Syringe SUBCUT SCH (20:00)
[2020-06-08] MEDS: Lisinopril 20 MG Tab PO SCH (08:03)
[2020-06-08] MEDS: Gabapentin 100 MG Cap PO SCH ×2 (08:03→19:50)
[2020-06-08] MEDS: amLODIPine 10 MG Tab PO SCH (08:04)
[2020-06-08] MEDS: Famotidine 20 MG Tab PO SCH (08:04)
[2020-06-08] MEDS: HYDROmorphone 2 MG Tab PO PRN ×3 (08:04→19:57)
[2020-06-08] MEDS: Enoxaparin 40 MG/0.4 ML Syringe SUBCUT SCH (19:50)
[2020-06-09] MEDS: Famotidine 20 MG Tab PO SCH (07:36)
[2020-06-09] MEDS: amLODIPine 10 MG Tab PO SCH (07:36)
[2020-06-09] MEDS: Lisinopril 20 MG Tab PO SCH (07:36)
[2020-06-09] MEDS: Gabapentin 100 MG Cap PO SCH ×2 (07:36→19:03)
[2020-06-09] MEDS: Docusate Sodium 100 MG Cap PO SCH ×2 (09:16→19:03)
[2020-06-09] MEDS: HYDROmorphone 2 MG Tab PO PRN ×2 (09:20→14:15)
[2020-06-09] MEDS: Enoxaparin 40 MG/0.4 ML Syringe SUBCUT SCH (19:03)
[2020-06-10] MEDS: Gabapentin 100 MG Cap PO SCH ×2 (08:01→20:38)
[2020-06-10] MEDS: amLODIPine 10 MG Tab PO SCH (08:02)
[2020-06-10] MEDS: Lisinopril 20 MG Tab PO SCH (08:02)
[2020-06-10] MEDS: Docusate Sodium 100 MG Cap PO SCH ×2 (08:02→20:38)
[2020-06-10] MEDS: Famotidine 20 MG Tab PO SCH (08:02)
[2020-06-10] MEDS: HYDROmorphone 2 MG Tab PO PRN ×2 (08:07→20:39)
[2020-06-10] MEDS: Enoxaparin 40 MG/0.4 ML Syringe SUBCUT SCH (20:38)
[2020-06-11] MEDS: Famotidine 20 MG Tab PO SCH (07:43)
[2020-06-11] MEDS: Lisinopril 20 MG Tab PO SCH (07:43)
[2020-06-11] MEDS: amLODIPine 10 MG Tab PO SCH (07:43)
[2020-06-11] MEDS: Docusate Sodium 100 MG Cap PO SCH ×2 (07:43→20:51)
[2020-06-11] MEDS: Gabapentin 100 MG Cap PO SCH ×2 (07:44→20:51)
[2020-06-11] MEDS: Acetaminophen 325 MG Tab PO PRN (07:44)
[2020-06-11] MEDS: HYDROmorphone 2 MG Tab PO PRN (20:51)
[2020-06-11] MEDS: Enoxaparin 40 MG/0.4 ML Syringe SUBCUT SCH (20:51)
[2020-06-12] MEDS: amLODIPine 10 MG Tab PO SCH (08:01)
[2020-06-12] MEDS: Famotidine 20 MG Tab PO SCH (08:01)
[2020-06-12] MEDS: Acetaminophen 325 MG Tab PO PRN (08:01)
[2020-06-12] MEDS: Docusate Sodium 100 MG Cap PO SCH ×2 (08:01→21:00)
[2020-06-12] MEDS: Lisinopril 20 MG Tab PO SCH (08:01)
[2020-06-12] MEDS: Gabapentin 100 MG Cap PO SCH ×2 (08:01→21:00)
[2020-06-12] MEDS: HYDROmorphone 2 MG Tab PO PRN ×2 (14:42→21:00)
[2020-06-12] MEDS: Enoxaparin 40 MG/0.4 ML Syringe SUBCUT SCH (21:00)
[2020-06-13] MEDS: Docusate Sodium 100 MG Cap PO SCH ×2 (08:01→20:37)
[2020-06-13] MEDS: Famotidine 20 MG Tab PO SCH (08:01)
[2020-06-13] MEDS: amLODIPine 10 MG Tab PO SCH (08:01)
[2020-06-13] MEDS: Lisinopril 20 MG Tab PO SCH (08:01)
[2020-06-13] MEDS: HYDROmorphone 2 MG Tab PO PRN ×2 (08:01→20:37)
[2020-06-13] MEDS: Gabapentin 100 MG Cap PO SCH ×2 (08:01→20:37)
[2020-06-13] MEDS: Enoxaparin 40 MG/0.4 ML Syringe SUBCUT SCH (20:37)
[2020-06-14] MEDS: Famotidine 20 MG Tab PO SCH (07:34)
[2020-06-14] MEDS: Docusate Sodium 100 MG Cap PO SCH ×2 (07:35→19:08)
[2020-06-14] MEDS: HYDROmorphone 2 MG Tab PO PRN ×2 (07:35→20:05)
[2020-06-14] MEDS: Lisinopril 20 MG Tab PO SCH (07:35)
[2020-06-14] MEDS: amLODIPine 10 MG Tab PO SCH (07:35)
[2020-06-14] MEDS: Gabapentin 100 MG Cap PO SCH ×2 (07:35→19:08)
[2020-06-14] MEDS: Enoxaparin 40 MG/0.4 ML Syringe SUBCUT SCH (19:08)
[2020-06-15 07:31] VITALS: BP 129/62; PULSE 87
[2020-06-15] MEDS: Gabapentin 100 MG Cap PO SCH (07:32)
[2020-06-15] MEDS: Lisinopril 20 MG Tab PO SCH (07:32)
[2020-06-15] MEDS: amLODIPine 10 MG Tab PO SCH (07:32)
[2020-06-15] MEDS: Docusate Sodium 100 MG Cap PO SCH (07:32)
[2020-06-15] MEDS: Famotidine 20 MG Tab PO SCH (07:32)
[2020-06-15] MEDS: HYDROmorphone 2 MG Tab PO PRN (09:05)
--- NOTE | 2020-06-16 01:30 | PCM.DCSUM1 ---
Discharge Summary - Hospital Course HPI Initial Comments: Win is an 80 yo female who was admitted to swing bed on June 11 after undergoing a left total reverse arthroplasty of the shoulder. She returned from [place] [facility] in [place] to be close to home while healing. Physical therapy has been working with her. She has shown excellent progression since admit. Pain well controlled. Diagnosis: Stroke: No - Discharge Data Discharge Date: 06/15/20 Discharge Disposition: DC/Tfer to SNF 03 Condition: Good - Referral to Home Health Primary Care Physician: Sena Pérez PA-C - Discharge Diagnosis/Problem(s) (1) Fracture of humeral head, right, closed SNOMED Code(s): 355499549 ICD Code: S42.291A - OTH DISP FX OF UPPER END OF RIGHT HUMERUS, INIT FOR CLOS FX Status: Acute Qualifiers: Encounter type: subsequent encounter Fracture healing: with routine healing Qualified Code(s): S42.291D - Other displaced fracture of upper end of right humerus, subsequent encounter for fracture with routine healing - Patient Summary/Data Consults: Consultations 06/03/20 16:08 PT Evaluation and Treatment [CONS] Routine - Patient Instructions Diet: Usual Diet as Tolerated Notify Provider of: Increased Pain, Swelling and Redness, Drainage - Discharge Plan Prescriptions/Med Rec: Famotidine [Acid-Pep] 20 mg PO DAILY #30 tablet Home Medications: Home Meds Gabapentin [Neurontin] 100 mg PO BID 05/28/20 [History] Docusate Sodium [Colace] 100 mg PO BID PRN cap 06/01/20 [Rx] Acetaminophen [Tylenol] 650 mg PO Q6H PRN 06/03/20 [History] amLODIPine [Norvasc] 10 mg PO DAILY 06/03/20 [History] lisinopriL [Lisinopril] 20 mg PO DAILY 06/03/20 [History] Famotidine [Acid-Pep] 20 mg PO DAILY #30 tablet 06/15/20 [Rx] traMADol [Ultram] 50 - 100 mg PO Q6H PRN #0 tablet 06/15/20 [Rx] - Discharge Summary/Plan Comment DC Time >30 min.: Yes Discharge Summary/Plan Comment: Patient will be discharged to nursing home at [facility] today for strengthening and conditioning. Physical therapy to continue treatment. OT to help with ADL's. Follow up appointment already scheduled with orthopedics, Dr. Daniels. NO complications or setbacks during swing bed stay. Required paperwork filled out into detail and medication list completed. - General Info Date of Service: 06/16/20 Functional Status: Reports: Pain Controlled, Tolerating Diet, Ambulating, Urinating. Denies: New Symptoms - Review of Systems General: Reports: No Symptoms HEENT: Reports: No Symptoms Pulmonary: Reports: No Symptoms Cardiovascular: Reports: No Symptoms Gastrointestinal: Reports: No Symptoms Genitourinary: Reports: No Symptoms Musculoskeletal: Reports: No Symptoms Skin: Reports: No Symptoms Neurological: Reports: No Symptoms Psychiatric: Reports: No Symptoms - Patient Data Vitals - Most Recent: Last Vital Signs Temp 98.9 F 06/15/20 07:31 Pulse 87 06/15/20 07:31 Resp 18 06/15/20 07:31 BP 129/62 06/15/20 07:32 Pulse Ox 95 06/15/20 07:31 Weight - Most Recent: 196 lb 11.2 oz Med Orders - Current: Current Medications Discontinued Medications Acetaminophen (Acetaminophen 325 Mg Tab) 650 mg PO Q4H PRN PRN Reason: Pain (Mild 1-3)/fever Last Admin: 06/12/20 08:01 Dose: 650 mg Documented by: Acetaminophen (Acetaminophen 325 Mg Tab) 650 mg PO Q6H PRN PRN Reason: Pain Amlodipine Besylate (Amlodipine 10 Mg Tab) 10 mg PO DAILY [facility] Last Admin: 06/15/20 07:32 Dose: 10 mg Documented by: Aspirin (Aspirin 325 Mg Tab.Ec) 325 mg PO DAILY [facility] Docusate Sodium (Docusate Sodium 100 Mg Cap) 100 mg PO BID PRN PRN Reason: Constipation Last Admin: 06/05/20 07:29 Dose: 100 mg Documented by: Docusate Sodium (Docusate Sodium 100 Mg Cap) 100 mg PO BID [facility] Last Admin: 06/15/20 07:32 Dose: 100 mg Documented by: Enoxaparin Sodium (Enoxaparin 40 Mg/0.4 Ml Syringe) 40 mg SUBCUT Q24H [facility] Last Admin: 06/14/20 19:08 Dose: 40 mg Documented by: Famotidine (Famotidine 20 Mg Tab) 20 mg PO DAILY [facility] Last Admin: 06/15/20 07:32 Dose: 20 mg Documented by: Gabapentin (Gabapentin 100 Mg Cap) 100 mg PO BID [facility] Last Admin: 06/15/20 07:32 Dose: 100 mg Documented by: Hydromorphone HCl (Hydromorphone 2 Mg Tab) 2 mg PO Q4H PRN PRN Reason: Pain (moderate 4-6) Last Admin: 06/15/20 09:05 Dose: 2 mg Documented by: Lisinopril (Lisinopril 20 Mg Tab) 20 mg PO DAILY [facility] Last Admin: 06/15/20 07:32 Dose: 20 mg Documented by: Magnesium Hydroxide (Magnesium Hydroxide 400 Mg/5 Ml Susp 30 Ml Cup) 30 ml PO BID PRN PRN Reason: Constipation Last Admin: 06/06/20 07:51 Dose: 30 ml Documented by: Polyethylene Glycol (Polyethylene Glycol 3350 Powder 17 Gm Packet) 17 gm PO DAILY [facility] Last Admin: 06/04/20 07:59 Dose: Not Given Documented by: Polyethylene Glycol (Polyethylene Glycol 3350 Powder 17 Gm Packet) 17 gm PO DAILY PRN PRN Reason: Constipation Last Admin: 06/07/20 08:28 Dose: 17 gm Documented by: Tramadol HCl (Tramadol 50 Mg Tab) 50 - 100 mg PO Q6H PRN PRN Reason: Breakthrough Pain Last Admin: 06/10/20 12:50 Dose: 50 mg Documented by: - Exam General: Reports: Alert, Oriented, Cooperative, No Acute Distress Lungs: Reports: Clear to Auscultation, Normal Respiratory Effort Cardiovascular: Reports: Regular Rate, Regular Rhythm GI/Abdominal Exam: Normal Bowel Sounds, Soft, Non-Tender Extremities: Normal Inspection, No Pedal Edema Skin: Reports: Warm, Dry, Intact Wound/Incisions: Reports: Healing Well Neurological: Reports: No New Focal Deficit Psy/Mental Status: Reports: Alert, Normal Affect, Normal Mood
== END 2020-06-15 10:00 | DRG 561 ==
LOC: CC.MS 14:46 → UNDOADMIN 14:46 → CC.MS 16:08
PROVIDERS: ADMIT Family Medicine; ATTEND Family Medicine
DX: S42.291D Other displaced fracture of upper end of right humerus, subsequent encounter for fracture with routine healing (principal); K21.9 Gastro-esophageal reflux disease without esophagitis; I10 Essential (primary) hypertension; F03.90 Unspecified dementia, unspecified severity, without behavioral disturbance, psychotic disturbance, mood disturbance, and anxiety
CPT/HCPCS: 36415; 82565; 97110-GP; 97161-GP; A9270-GY; J1650

== ENCOUNTER 2024-01-14 13:15 | Emergency (ER) | payer MEDICARE, BC ==
[2024-01-14] MEDS ORDERED: traMADol 50 MG Tab PO ONE (14:31)
== END 2024-01-14 15:00 | disposition home or self-care (01) ==
LOC: CC.ED 13:15
DX: S82.832A Other fracture of upper and lower end of left fibula, initial encounter for closed fracture (principal); I10 Essential (primary) hypertension; Z79.899 Other long term (current) drug therapy; W01.0XXA Fall on same level from slipping, tripping and stumbling without subsequent striking against object, initial encounter
CPT/HCPCS: 73590-LT; 73600-LT; 99283

== ENCOUNTER 2024-10-07 15:21 | Inpatient (IN) | payer MEDICARE, BC ==
[2024-10-07 15:51] LABS: APPEARANCE,URINE SLIGHTLY CLOUDY (CLEAR); GLUCOSE,URINE NEGATIVE (NEGATIVE); OCCULT BLOOD,URINE MODERATE (NEGATIVE)
[2024-10-07 16:02] LABS: EPITHELIAL CELLS,URINE MODERATE /HPF (NOT SEEN)
[2024-10-07 16:02] LABS: LACTIC ACID 1.9 mmol/L (0.4-2.0)
[2024-10-07] MEDS ORDERED: Ondansetron 4 MG Tab.DIS PO PRN (17:54)
[2024-10-07] MEDS ORDERED: Ondansetron 4 MG/2 ML SDV IV PRN (17:54)
[2024-10-07] MEDS ORDERED: Acetaminophen/HYDROcodone 325-5 MG Tab PO PRN (17:54)
[2024-10-07] MEDS ORDERED: Sodium Chloride 0.9% 10 ML Syringe FLUSH PRN (17:54)
[2024-10-08 07:47] LABS: BASOPHILS ABSOLUTE AUTO 0.00 10^3/uL (0.00-0.50); BASOPHILS PERCENT AUTO 0.0 % (0-1); EOSINOPHILS ABSOLUTE AUTO 0.00 10^3/uL (0.00-1.50); EOSINOPHILS PERCENT AUTO 0.0 % (0-6); IMMATURE GRAN ABSOLUTE AUTO 0.11 10^3/uL (0.00-0.49); IMMATURE GRAN PERCENT AUTO 0.6 % (0.0-4.9); LYMPHOCYTES ABSOLUTE AUTO 0.59 10^3/uL (0.60-5.00); LYMPHOCYTES PERCENT AUTO 3.2 % (24-44); MONOCYTES ABSOLUTE AUTO 1.35 10^3/uL (0.00-1.50); MONOCYTES PERCENT AUTO 7.2 % (0-10); NEUTROPHILS ABSOLUTE AUTO 16.61 x10^3/uL (1.80-8.00); NEUTROPHILS PERCENT AUTO 89.0 % (41-71); PLATELET COUNT,PLT 176 10^3/uL (150-400); RED BLOOD CELL COUNT 4.74 x10^6/uL (4.00-5.50); WHITE BLOOD CELL COUNT,WBC 18.7 10^3/uL (4.0-11.0)
[2024-10-08] MEDS: Lactobacillus Rhamnosus GG (Probiotic) Cap PO SCH (08:01)
[2024-10-08 08:13] LABS: ALANINE AMINOTRANSFERASE,ALT 31.0 U/L (12-78); ASPARTATE AMNIOTRANSFERASE,AST 36.0 U/L (15-37); BILIRUBIN TOTAL 0.5 mg/dL (0.0-1.0); BLOOD UREA NITROGEN,BUN 49.0 mg/dL (7-18); CARBON DIOXIDE,CO2 28.0 mmol/L (21-32); CHLORIDE,CL 102.0 mEq/L (98-106); CREATININE 2.0 mg/dL (0.6-1.0); EST CRCL DRUG DOSING (CG) 16.42 mL/min; GLUCOSE RANDOM 107.0 mg/dL (75-99); POTASSIUM,K 3.5 mEq/L (3.5-5.0); PROTEIN TOTAL,TP 6.4 g/dL (6.4-8.2); SODIUM,NA 141.0 mEq/L (136-145)
[2024-10-08 08:17] LABS: ESTIMATED GFR 24.0 mL/min (>=60)
[2024-10-08] MEDS: Aluminum Hydroxide/Magnesium Hydroxide/Simethicone Susp 30 ML Cup PO PRN (12:27)
[2024-10-09 08:01] LABS: BASOPHILS ABSOLUTE AUTO 0.01 10^3/uL (0.00-0.50); BASOPHILS PERCENT AUTO 0.1 % (0-1); EOSINOPHILS ABSOLUTE AUTO 0.00 10^3/uL (0.00-1.50); EOSINOPHILS PERCENT AUTO 0.0 % (0-6); IMMATURE GRAN ABSOLUTE AUTO 0.04 10^3/uL (0.00-0.49); IMMATURE GRAN PERCENT AUTO 0.3 % (0.0-4.9); LYMPHOCYTES ABSOLUTE AUTO 0.54 10^3/uL (0.60-5.00); LYMPHOCYTES PERCENT AUTO 4.0 % (24-44); MONOCYTES ABSOLUTE AUTO 1.11 10^3/uL (0.00-1.50); MONOCYTES PERCENT AUTO 8.1 % (0-10); NEUTROPHILS ABSOLUTE AUTO 11.93 x10^3/uL (1.80-8.00); NEUTROPHILS PERCENT AUTO 87.5 % (41-71); PLATELET COUNT,PLT 156 10^3/uL (150-400); RED BLOOD CELL COUNT 4.48 x10^6/uL (4.00-5.50); WHITE BLOOD CELL COUNT,WBC 13.6 10^3/uL (4.0-11.0)
[2024-10-09 08:08] LABS: ALANINE AMINOTRANSFERASE,ALT 24.0 U/L (12-78); ASPARTATE AMNIOTRANSFERASE,AST 20.0 U/L (15-37); BILIRUBIN TOTAL 0.5 mg/dL (0.0-1.0); BLOOD UREA NITROGEN,BUN 29.0 mg/dL (7-18); CARBON DIOXIDE,CO2 30.0 mmol/L (21-32); CHLORIDE,CL 101.0 mEq/L (98-106); CREATININE 1.2 mg/dL (0.6-1.0); EST CRCL DRUG DOSING (CG) 27.36 mL/min; GLUCOSE RANDOM 109.0 mg/dL (75-99); POTASSIUM,K 3.0 mEq/L (3.5-5.0); PROTEIN TOTAL,TP 6.0 g/dL (6.4-8.2); SODIUM,NA 139.0 mEq/L (136-145)
[2024-10-09 08:24] LABS: ESTIMATED GFR 45.0 mL/min (>=60)
[2024-10-09] MEDS: Potassium Chloride 20 MEQ Tab.ER PO ONE (10:48)
== END 2024-10-09 11:50 | DRG 444 ==
LOC: CC.MS 15:21 → INTOOBSV 15:21 → OBSVTOIN 15:21 → UNDOADMOB 15:21 → OBSVTOIN 17:54 → CC.MS 17:54
PROVIDERS: ADMIT Nurse Practitioner Family; ATTEND Nurse Practitioner Family
DX: K80.00 Calculus of gallbladder with acute cholecystitis without obstruction (principal); K81.0 Acute cholecystitis; J18.9 Pneumonia, unspecified organism; N17.9 Acute kidney failure, unspecified; N30.01 Acute cystitis with hematuria; K56.7 Ileus, unspecified; H54.7 Unspecified visual loss; D72.829 Elevated white blood cell count, unspecified; Z96.612 Presence of left artificial shoulder joint; I10 Essential (primary) hypertension; Z87.81 Personal history of (healed) traumatic fracture; Z98.49 Cataract extraction status, unspecified eye; Z98.890 Other specified postprocedural states; Z79.899 Other long term (current) drug therapy
CPT/HCPCS: 36415; 71046; 74176; 80048; 80053; 81001; 83605; 85025; 86140; 87040; 87086; 87088; 87186; 97161-GP; 99223; 99233; 99238; A9270-GY; J0696; J1650; J2543; J7030